=== PATIENT | female | born 1960 | race Hispanic/Latino ===

== ENCOUNTER 2019-02-25 15:25 | Outpatient (CLI) | payer OTHER ==
--- NOTE | 2019-02-25 16:38 | BD ---
Exam: DEXA Bone Density 02/25/19 COMPARISON: None. HISTORY: 58-year-old postmenopausal female for screening. Lumbar Spine: BMD (g/cm2) T-SCORE L1 0.866 -1.1 L2 0.824 -1.9 L3 0.934 -1.4 L4 0.916 -1.3 L1-L4 0.887 -1.5 Left Femoral Neck: 0.782 -0.6 Total Proximal Left Femur: 1.016 0.6 Right Femoral Neck: 0.778 -0.6 Total Proximal Right Femur: 0.991 0.4 Impression:Osteopenia. This patient has a ten year WHO fracture risk of a major osteoporotic fracture of 7.3% and hip fracture of 0.4%. POS: MOISES
== END 2019-02-25 15:26 | disposition home or self-care (01) ==
LOC: BICMAMMO 15:25
PROVIDERS: ATTEND Internal Medicine Rheumatology
DX: M81.0 Age-related osteoporosis without current pathological fracture (principal); M85.88 Other specified disorders of bone density and structure, other site
CPT/HCPCS: 77080

== ENCOUNTER 2021-06-06 14:03 | Outpatient (CLI) | payer OTHER | END 2021-06-06 14:04 | disposition home or self-care (01) | LOC: BICMAMMO 14:03 | PROVIDERS: ATTEND Internal Medicine Rheumatology | DX: M81.0 Age-related osteoporosis without current pathological fracture (principal); M85.88 Other specified disorders of bone density and structure, other site | CPT/HCPCS: 77080 ==